=== PATIENT | male | born 1960 | race African-American/Black ===

== ENCOUNTER → 2017-05-02 | Outpatient (CLI) | payer OTHER ==
[2016-05-27 18:30] VITALS: BP 140/85
[~2017-05-02] MED LIST: CYCL10TA2 PO; HYDR-971 PO; METH4TAB2 PO; ORPH100T PO; Oxycodone Hcl/Acetaminophen PO; PRED50TA PO
--- NOTE | 2017-05-02 09:47 | KCIC ---
MRI Cervical Spine Without Contrast History: Neck pain, bilateral upper extremity numbness Technique: Multiplanar, multi sequential noncontrast MR imaging was performed of the cervical spine. Comparison: December 08, 2014 Findings: There is again interbody fusion C3-4. Cervical vertebral body stature is preserved. There is focus of increased T2 and STIR signal of the right cord at the C4-5 level which was present previously, previous exam degraded by more motion. There is again moderate to severe degenerative disc disease C5-C6 and to lesser degree at C4-5 and C6-7. There is no significant marrow edema. There is very minimal posterior subluxation C4 relative to C5 now present. There is again somewhat diffuse narrowing of the cervical spinal canal on a developmental basis. C2-C3: Central canal is minimally narrowed to about 8 mm mostly on a developmental basis. Neural foramina are adequate. C3-C4: Central canal is narrowed to 7-8 mm on a developmental basis as seen previously. Neural foramina are not significantly narrowed. C4-C5: There is again broad posterior disc osteophyte complex and bulge/protrusion. There is again effacement of the ventral and dorsal subarachnoid space with impingement of the cord. There is again significant narrowing of the central canal on the order of 4 mm. There is again bilateral facet and uncovertebral degenerative change. There is severe neural foramina compromise bilaterally. C5-C6: There is again disc osteophyte complex, superimposed more central protrusion as seen previously. There is effacement of ventral subarachnoid space and contact of the cord. Central canal is narrowed to 4 to 5 mm, slightly greater. There is uncovertebral degenerative change greater on the left. There is fairly severe narrowing of the left neural foramen, mild to moderate narrowing on the right. C6-C7: There is again disc osteophyte complex and bulge, now very shallow right paracentral protrusion. Central canal is narrowed to 7 to 8 mm which is slightly greater. There is uncovertebral degenerative change bilaterally greater on the left. There is fairly severe left and moderate to severe right neural foramina compromise. C7-T1: Spinal canal is adequate. There is mild uncovertebral degenerative change. Neural foramina are overall adequate. Impression: 1. There is again severe spinal stenosis C4-5 and C5-C6, to a lesser degree at C6-7. There is again impingement of the cord at C4-5 and also contact of the ventral cord at C5-C6. There is component of developmental narrowing of the cervical spinal canal. 2. Multilevel facet and uncovertebral degenerative change results in multilevel cervical neural foramina compromise, more significant narrowing bilaterally at C6-7 and C4-5 and left greater than right at C5-C6. 3. There is again signal abnormality of the right cord at C4-5 more likely due to myelomalacia although component of mild cord edema not excluded. 4. There is interbody fusion C3-4. There is degenerative disc disease greatest at C5-C6 and to lesser degree at C4-5 and C6-7 with spondylosis at the same levels. Electronically signed by: Mario Valdez MD (05/02/2017 9:44 AM) [facility]
== END | disposition home or self-care (01) ==
LOC: KCIC MRI 08:45
PROVIDERS: ATTEND Family Medicine
DX: M48.02 Spinal stenosis, cervical region (principal); M50.322 Other cervical disc degeneration at C5-C6 level; M50.323 Other cervical disc degeneration at C6-C7 level; M47.892 Other spondylosis, cervical region; R20.0 Anesthesia of skin
CPT/HCPCS: 72141

== ENCOUNTER → 2017-07-03 | Outpatient (CLI) | payer OTHER ==
[2017-07-03 14:13] LABS: ADD MAN DIFF? NO
[2017-07-03 14:20] LABS: BASO % 0 % (0-3); EOS # 0.1 x10^3/uL (0.0-0.7); EOS % 1 % (0-3); HEMATOCRIT 41.5 % (39.0-53.0); HEMOGLOBIN 13.8 g/dL (13.0-17.5); LYMPH # 2.5 x10^3/uL (1.0-4.8); LYMPH % 32 % (24-48); MEAN CORPUSCULAR HEMOGLOBIN 26 pg (25-35); MEAN CORPUSCULAR HGB CONC 33 g/dL (31-37); MEAN CORPUSCULAR VOLUME 78 fL (79-100); MONO # 0.8 x10^3/uL (0.0-1.1); MONO % 10 % (0-9); NEUT # 4.4 x10^3uL (1.8-7.7); NEUT % 57 % (31-73); PLATELET COUNT 279 x10^3/uL (140-400); RED BLOOD COUNT 5.34 x10^6/uL (4.30-5.70); RED CELL DISTRIBUTION WIDTH 13.4 % (11.5-14.5); WHITE BLOOD COUNT 7.7 x10^3/uL (4.0-11.0)
[2017-07-03 14:28] LABS: PARTIAL THROMBOPLASTIN TIME 32 SEC (24-38); PROTHROMBIN TIME PATIENT 12.7 SEC (11.7-14.0)
[2017-07-03 14:37] LABS: ALBUMIN 3.6 g/dL (3.4-5.0); ALBUMIN/GLOBULIN RATIO 0.8 (1.0-1.7); ALK PHOS 67 U/L (46-116); ALT (SGPT) 61 U/L (16-63); ANION GAP 12 (6-14); AST (SGOT) 33 U/L (15-37); BLOOD UREA NITROGEN 14 mg/dL (8-26); BUN/CREATININE RATIO 16 (6-20); CALCIUM 8.7 mg/dL (8.5-10.1); CARBON DIOXIDE 24 mmol/L (21-32); CHLORIDE 106 mmol/L (98-107); CREATININE 0.9 mg/dL (0.7-1.3); GFR 105.6; GLUCOSE 120 mg/dL (70-99); POTASSIUM 3.8 mmol/L (3.5-5.1); SODIUM 142 mmol/L (136-145); TOTAL BILIRUBIN 0.3 mg/dL (0.2-1.0); TOTAL PROTEIN 7.9 g/dL (6.4-8.2)
[2017-07-04 04:16] LABS: MRSA BY PCR Negative (Negative)
== END | disposition home or self-care (01) ==
LOC: SURGPAT 13:25
DX: M48.02 Spinal stenosis, cervical region (principal); Z01.818 Encounter for other preprocedural examination (principal)
CPT/HCPCS: 80053; 85025; 85610; 85730; 87641; 93005

== ENCOUNTER → 2018-06-02 | Outpatient (CLI) | payer OTHER ==
[2016-05-27 18:30] VITALS: BP 140/85
[~2018-06-02] MED LIST changes: +GABA600T2 PO; +HYDR-3135 PO; +HYDR-3164 PO; -HYDR-971 PO; +LISI10TA2 PO; +TAMS0.4C2 PO
--- NOTE | 2018-06-02 16:40 | RAD ---
Carotid doppler ultrasound History: Double vision Multiple grayscale, color, and duplex spectral analysis waveform sonographic images were acquired of the carotid, subclavian, and vertebral arteries. Comparison: None Findings: RIGHT: PSV cm/sec EDV cm/sec Common carotid artery 109 32 Maximal internal carotid artery 99 27 Subclavian artery 143 External carotid artery 110 Vertebral artery 52 ICA/CCA ratio 0.90 LEFT: PSV cm/sec EDV cm/sec Common carotid artery 105 29 Maximum internal carotid artery 89 34 Subclavian artery 116 External carotid artery 130 Vertebral artery 74 ICA/CCA ratio 0.84 Velocities used to determine stenosis are known to correlate with NASCET angiographic criteria. There is antegrade flow in the bilateral vertebral arteries. No significant stenosis is demonstrated on grayscale or color images, minimal plaque present. Impression: 1. There is no evidence of a hemodynamically significant stenosis. Electronically signed by: Mario Valdez MD (06/02/2018 4:36 PM) [facility]
== END | disposition home or self-care (01) ==
LOC: US 13:37
PROVIDERS: ATTEND Family Medicine
DX: H53.2 Diplopia (principal)
CPT/HCPCS: 93880

== ENCOUNTER 2018-11-24 15:31 | Emergency (ER) | payer OTHER ==
[~2018-11-24] VITALS: Ht 167.6 cm; Wt 66.7 kg
[~2018-11-24 15:31] MED LIST changes: -GABA600T2 PO; +GABA600T7 PO
[2018-11-24 15:34] VITALS: BP 175/82
--- NOTE | 2018-11-24 16:10 | RAD ---
TIBIA FIBULA RIGHT, FOOT RIGHT 3V Pain and swelling after injury. Two-view right tibia fibula No evidence of acute fracture. No aggressive bone destruction or periosteal reaction. 3 view right foot No acute fracture. No aggressive bone destruction. Joint spaces and alignment are intact. Small calcaneal enthesophyte. Mild spurring at the dorsal talonavicular joint. No significant soft tissue abnormality. IMPRESSION: No acute fracture or dislocation. Electronically signed by: Abiodun Gaxiola MD (11/24/2018 4:07 PM) [facility]
--- NOTE | 2018-11-24 16:10 | RAD ---
TIBIA FIBULA RIGHT, FOOT RIGHT 3V Pain and swelling after injury. Two-view right tibia fibula No evidence of acute fracture. No aggressive bone destruction or periosteal reaction. 3 view right foot No acute fracture. No aggressive bone destruction. Joint spaces and alignment are intact. Small calcaneal enthesophyte. Mild spurring at the dorsal talonavicular joint. No significant soft tissue abnormality. IMPRESSION: No acute fracture or dislocation. Electronically signed by: Abiodun Gaxiola MD (11/24/2018 4:07 PM) [facility]
--- NOTE | 2018-11-24 16:24 | PHYS DOC ---
Past Medical History Past Medical History: No Pertinent History, Hypertension Past Surgical History: Other Additional Past Surgical Histo: CERVICAL SPINE, LEFT SHOULDER ROTAR CUFF Alcohol Use: None Drug Use: None Adult General Chief Complaint Chief Complaint: FOOT INJURY PAIN HPI HPI Patient is a 58 year old female with history of hypertension who presents to the ED today complaining of 9 out of 10 throbbing intermittent right calf pain that began 3 weeks ago, patient states he stepped on a 4 x 2 which hit him on the calf. Patient states his pain is worse on weight bearing. Denies anything specifically relieving the pain. He states he went to urgent care this send him to the ED to be evaluated for DVT. Review of Systems Review of Systems Constitutional: Denies fever or chills [] Eyes: Denies change in visual acuity, redness, or eye pain [] HENT: Denies nasal congestion or sore throat [] Respiratory: Denies cough or shortness of breath [] Cardiovascular: No additional information not addressed in HPI [] GI: Denies abdominal pain, nausea, vomiting, bloody stools or diarrhea [] : Denies dysuria or hematuria [] Musculoskeletal: Reports right calf pain. Integument: Denies rash or skin lesions [] Neurologic: Denies headache, focal weakness or sensory changes [] All other systems were reviewed and found to be within normal limits, except as documented in this note. Allergies Allergies Allergies Coded Allergies Type Severity Reaction Last Updated Verified No Known Drug Allergies 07/03/17 No Physical Exam Physical Exam Constitutional: Well developed, well nourished, no acute distress, non-toxic appearance. [] HENT: Normocephalic, atraumatic, bilateral external ears normal, oropharynx mois t, no oral exudates, nose normal. [] Eyes: PERRLA, EOMI, conjunctiva normal, no discharge. [] Neck: Normal range of motion, no tenderness, supple, no stridor. [] Cardiovascular:Heart rate regular rhythm, no murmur [] Lungs & Thorax: Bilateral breath sounds clear to auscultation [] Abdomen: Bowel sounds normal, soft, no tenderness, no masses, no pulsatile masses. [] Skin: Warm, dry, no erythema, no rash. [] Back: No tenderness, no CVA tenderness. [] Extremities: Right lower extremity from the calf to the foot with mild soft tissue swelling diffusely. There is no obvious erythema. Diffuse tenderness throughout the calf on the foot. Negative Homans sign to the right foot. +2 right pedal pulse. Cap refill less than 2 seconds the right toes. Neurologic: Alert and oriented X 3, normal motor function, normal sensory function, no focal deficits noted. [] Psychologic: Affect normal, judgement normal, mood normal. [] Current Patient Data Vital Signs Vital Signs Date Time Temp Pulse Resp B/P (MAP) Pulse Ox O2 Delivery O2 Flow Rate FiO2 11/24/18 15:34 98.0 66 18 175/82 (113) 99 Room Air 98.0 EKG EKG [] Radiology/Procedures Radiology/Procedures []PROCEDURE: FOOT RIGHT 3V TIBIA FIBULA RIGHT, FOOT RIGHT 3V Pain and swelling after injury. Two-view right tibia fibula No evidence of acute fracture. No aggressive bone destruction or periosteal reaction. 3 view right foot No acute fracture. No aggressive bone destruction. Joint spaces and alignment are intact. Small calcaneal enthesophyte. Mild spurring at the dorsal talonavicular joint. No significant soft tissue abnormality. IMPRESSION: No acute fracture or dislocation. Electronically signed by: Abiodun Gaxiola MD (11/24/2018 4:07 PM) [facility] DICTATED and SIGNED BY: ABIODUN GAXIOLA MD DATE: 11/24/18 1605 PROCEDURE: VENOUS LOWER EXTREMITY RIGHT Right Leg Venous Doppler Ultrasound, 11/24/2018 Indication: Right foot injury Comparison: None available Procedure: Real-time grayscale, color flow color duplex Doppler and spectral analysis are obtained with and without compression in the area of the common femoral vein, superficial femoral vein - femoral vein junction, main femoral vein (superficial femoral vein) and popliteal vein. Veins of the proximal calf are also imaged. Findings: There is normal duplex flow, color flow and compressibility of all visualized vein segments. No evidence of deep venous thrombus is present. Impression: Negative venous Doppler of right lower extremity Electronically signed by: Modesta Martin MD (11/24/2018 4:30 PM) [facility] DICTATED and SIGNED BY: MODESTA MARTIN MD DATE: 11/24/18 1630 PROCEDURE: TIBIA FIBULA RIGHT TIBIA FIBULA RIGHT, FOOT RIGHT 3V Pain and swelling after injury. Two-view right tibia fibula No evidence of acute fracture. No aggressive bone destruction or periosteal reaction. 3 view right foot No acute fracture. No aggressive bone destruction. Joint spaces and alignment are intact. Small calcaneal enthesophyte. Mild spurring at the dorsal talonavicular joint. No significant soft tissue abnormality. IMPRESSION: No acute fracture or dislocation. Electronically signed by: Abiodun Gaxiola MD (11/24/2018 4:07 PM) [facility] DICTATED and SIGNED BY: ABIODUN GAXIOLA MD DATE: 11/24/18 1605 Course & Med Decision Making Course & Med Decision Making Pertinent Labs and Imaging studies reviewed. (See chart for details) This is a 58-year-old male patient presenting to the ED today with right calf pain that began 3 weeks ago after stepping on a 4 x 2 that hit him on the calf. Right foot, right tib-fib x-rays interpreted by radiologist are negative for any acute findings, venous Doppler of the right lower extremity is negative. Patient was discharged to home, prescription for diclofenac and gabapentin provided. Ice elevation encouraged. Price bandage recommended for comfort. Provided instructions to follow-up with PCP orthopedic doctor in 1-2 weeks. Dragon Disclaimer Dragon Disclaimer This electronic medical record was generated, in whole or in part, using a voice recognition dictation system. Departure Departure Impression: Primary Impression: Contusion of right calf Additional Impression: Right leg pain Disposition: 01 HOME, SELF-CARE Condition: STABLE Referrals: ABIODUN KEE MD (PCP) follow up in 1 week SAMUEL CARBONE MD follow up in 1-2 weeks Patient Instructions: Contusion, [id number], Musculoskeletal Pain Additional Instructions: You were evaluated in the emergency room for contusion to the right calf. Your right leg x-rays are negative for any acute findings, we did a venous Doppler of the right lower extremity which was negative for any blood clot. You can wrap your right lower extremity with an Price bandage as tolerated. Try to ice and elevate the extremity. Take the prescribed medications as needed for pain. Follow-up with your own doctor or the provided doctor in one week. Scripts Gabapentin (NEURONTIN ) 300 Mg Capsule 300 MG PO BID for NEUROGENIC PAIN, #10 CAP Prov: ROSI BROWNE DOLLY DRIVER 11/24/18 Diclofenac Sodium (DICLOFENAC SODIUM) 50 Mg Tablet.dr 1 TAB PO BID, #20 TAB 0 Refills Prov: ROSI BROWNE APRN 11/24/18 Problem Qualifiers Primary Impression: Contusion of right calf Encounter type: initial encounter Qualified Codes: S80.11XA - Contusion of right lower leg, initial encounter ROSI BROWNE APRN Nov 24, 2018 16:24
--- NOTE | 2018-11-24 16:32 | RAD ---
Right Leg Venous Doppler Ultrasound, 11/24/2018 Indication: Right foot injury Comparison: None available Procedure: Real-time grayscale, color flow color duplex Doppler and spectral analysis are obtained with and without compression in the area of the common femoral vein, superficial femoral vein - femoral vein junction, main femoral vein (superficial femoral vein) and popliteal vein. Veins of the proximal calf are also imaged. Findings: There is normal duplex flow, color flow and compressibility of all visualized vein segments. No evidence of deep venous thrombus is present. Impression: Negative venous Doppler of right lower extremity Electronically signed by: Modesta Martin MD (11/24/2018 4:30 PM) [place] [id number]
[2018-11-24] MEDS ORDERED: GABA300C18 PO (16:53)
[2018-11-24] MEDS ORDERED: DICL50TA4 PO (16:53)
== END 2018-11-24 16:56 | disposition home or self-care (01) ==
LOC: ER 15:31
DX: S80.11XA Contusion of right lower leg, initial encounter (principal); I10 Essential (primary) hypertension; W22.8XXA Striking against or struck by other objects, initial encounter; Y93.89 Activity, other specified; Y92.89 Other specified places as the place of occurrence of the external cause; Y99.8 Other external cause status
CPT/HCPCS: 73590; 73630; 93971; 99284-25

== ENCOUNTER 2019-02-25 15:37 | Emergency (ER) | payer OTHER ==
[~2019-02-25] VITALS: Ht 165.1 cm; Wt 66.7 kg
[~2019-02-25 15:37] MED LIST changes: +DICL50TA4 PO; +GABA300C18 PO
[2019-02-25 15:45] VITALS: BP 112/68
[2019-02-25] MEDS: HYDROcodone/APAP 5/325MG 1 TAB TABLET PO ONE (16:30)
--- NOTE | 2019-02-25 16:49 | RAD ---
EXAM: Left femur, 2 views; pelvis and left hip, 3 views. HISTORY: Pain. Fall. COMPARISON: None. FINDINGS: 2 views of left femur and a frontal view of the pelvis and 2 views of the left hip are obtained. There is no fracture, dislocation or subluxation. The femoral heads are normal in configuration. There is no suspicious lytic or sclerotic osseous lesion. There is no knee effusion. IMPRESSION: No acute osseous finding. Electronically signed by: Patti Gama MD (02/25/2019 4:46 PM) [facility]
--- NOTE | 2019-02-25 17:23 | PHYS DOC ---
Past Medical History Past Medical History: No Pertinent History, Hypertension Past Surgical History: Other Additional Past Surgical Histo: CERVICAL SPINE, LEFT SHOULDER ROTAR CUFF Alcohol Use: None Drug Use: None Adult General Chief Complaint Chief Complaint: HIP PAIN HPI HPI Patient is a 58 year old male who presents with states, they was sitting on the porch and he follows the stoop E on his left hip and left leg. Patient complains of left hip pain that radiates down the thigh into his knee. Patient rates his pain 9 out of 10. Review of Systems Review of Systems Constitutional: Denies fever or chills [] Musculoskeletal: Left lateral thigh. Denies back pain or Left hip joint pain [] Integument: Denies rash or skin lesions [] Neurologic: Denies headache, focal weakness or sensory changes [] All other systems were reviewed and found to be within normal limits, except as documented in this note. Current Medications Current Medications Current Medications Medications (Trade) Dose Ordered Sig/Shea Start Time Stop Time Status Last Admin Dose Admin Acetaminophen/ Hydrocodone Bitart (Lortab 5/325) 1 tab 1X ONCE 02/25/19 16:30 02/25/19 16:31 DC 02/25/19 16:37 1 TAB Allergies Allergies Allergies Coded Allergies Type Severity Reaction Last Updated Verified No Known Drug Allergies 07/03/17 No Physical Exam Physical Exam Constitutional: Well developed, well nourished, no acute distress, non-toxic appearance. [] Skin: Warm, dry, no erythema, no rash. [] Back: No tenderness, no CVA tenderness. [] Extremities: Left lateral thigh tenderness, no cyanosis, no clubbing, ROM intact, no edema. [] Neurologic: Alert and oriented X 3, normal motor function, normal sensory function, no focal deficits noted. [] Psychologic: Affect normal, judgement normal, mood normal. [] Current Patient Data Vital Signs Vital Signs Date Time Temp Pulse Resp B/P (MAP) Pulse Ox O2 Delivery O2 Flow Rate FiO2 02/25/19 16:37 16 97 Room Air 02/25/19 15:45 97.9 69 112/68 (83) 97.9 EKG EKG [] Radiology/Procedures Radiology/Procedures [] Impressions: [facility] [address] [place] [address] IMAGING REPORT Signed PATIENT: CELI TOLBERT ACCOUNT: [id number] : 1960 LOCATION: ER AGE: 58 SEX: M EXAM STATUS: REG ER ORD. PHYSICIAN: KENNEDY SHELDON APRN REASON: PAIN, FALL PROCEDURE: LEFT FEMUR XRAY EXAM: Left femur, 2 views; pelvis and left hip, 3 views. HISTORY: Pain. Fall. COMPARISON: None. FINDINGS: 2 views of left femur and a frontal view of the pelvis and 2 views of the left hip are obtained. There is no fracture, dislocation or subluxation. The femoral heads are normal in configuration. There is no suspicious lytic or sclerotic osseous lesion. There is no knee effusion. IMPRESSION: No acute osseous finding. Electronically signed by: Patti Ortiz MD (02/25/2019 4:46 PM) [facility] DICTATED and SIGNED BY: PATTI ORTIZ MD DATE: 02/25/191645 Course & Med Decision Making Course & Med Decision Making Patient is a 58 year old male who presents with states, they was sitting on the porch and he follows the stoop E on his left hip and left leg. Patient complains of left hip pain that radiates down the thigh into his knee. Patient rates his pain 9 out of 10. Full range of motion to the hip joint and knee joints. No laxity in the joints. No swelling or edema or bruising or abrasions or lacerations to the extremity. Only tenderness to the left lateral thigh. Pedal pulses strong and present. Skin pink warm and dry. Cap refill less than 3 seconds. Patient denies any numbness or tingling, color change of the skin or coolness in the extremity. X-ray shows no acute findings. Patient to follow-up with his primary care provider. Dragon Disclaimer Dragon Disclaimer This electronic medical record was generated, in whole or in part, using a voice recognition dictation system. Departure Departure Impression: Primary Impression: Right leg pain Disposition: 01 HOME, SELF-CARE Condition: STABLE Referrals: EV KEE MD (PCP) Patient Instructions: Contusion Additional Instructions: Follow-up with primary care provider. Take ibuprofen or Tylenol for pain. Use ice or heat also to help with pain. KENNEDY SHELDON APRN Feb 25, 2019 17:23
== END 2019-02-25 17:40 | disposition home or self-care (01) ==
LOC: ER 15:37
DX: M25.552 Pain in left hip (principal); I10 Essential (primary) hypertension; M79.652 Pain in left thigh; W13.0XXA Fall from, out of or through balcony, initial encounter; Y93.89 Activity, other specified; Y92.89 Other specified places as the place of occurrence of the external cause; Y99.8 Other external cause status
CPT/HCPCS: 73502; 73552; 99284

== ENCOUNTER 2020-03-03 09:13 | Emergency (ER) | payer OTHER ==
[~2020-03-03] VITALS: Ht 165.1 cm; Wt 66.0 kg
[2020-03-03 09:33] VITALS: BP 167/89
[2020-03-03] MEDS ORDERED: diazePAM 5 MG TABLET PO ONE (10:15)
--- NOTE | 2020-03-03 11:04 | RAD ---
Cervical spine CT without contrast History:Burning neck pain Technique: Noncontrast CT imaging was performed of the cervical spine. Multiplanar images are reviewed. Exposure: One or more of the following individualized dose reduction techniques were utilized for this examination: 1. Automated exposure control 2. Adjustment of the mA and/or kV according to patient size 3. Use of iterative reconstruction technique. Comparison: December 08, 2014 Findings: There is anterior cervical fusion hardware with intact metallic plate and screws at C4, C5, C6, C7. There is incorporated interbody grafts, degree of interbody fusion at these levels. There is again interbody fusion at C3-4. There is also posterior fusion hardware with posterior lateral mass screws C3, C4, C5, C6, and T1 attached to vertical rods. Hardware is intact. Cervical vertebral body stature is overall maintained. There is degree of diffuse narrowing of the cervical spinal canal on a developmental basis. There are posterior osteophytes variably C3-4 through C6-7 which slightly indents the ventral thecal sac. Residual AP osseous spinal canal is narrowed to about 6 to 7 mm at C4-5, to a lesser degree such as at C3-4 and C5-6. There is multilevel cervical facet degenerative change. There is multilevel [id number] neural foramina compromise greatest on the left at C3-C4 and C5-6, bilaterally at C4-5, and to a somewhat lesser degree bilaterally at C6-7. There is adequate alignment of lateral masses of C1 relative to C2. Occipital condylar -C1 articulation is maintained. Impression: 1. No acute cervical spine fracture is identified. 2. There is intact multilevel cervical hardware as stated. There is degree of diffuse cervical spinal stenosis on developmental basis, additional narrowing by osteophytes greatest at C4-5. There is variable, multilevel, [id number] cervical neural foramina compromise. Electronically signed by: Mario Valdez MD (03/03/2020 11:01 AM) [id number]
[2020-03-03] MEDS ORDERED: IBUP-1007 PO (12:16)
[2020-03-03] MEDS ORDERED: CYCL5TAB PO (12:16)
--- NOTE | 2020-03-03 12:18 | PHYS DOC ---
Past Medical History Past Medical History: No Pertinent History, Hypertension Past Surgical History: Other Additional Past Surgical Histo: CERVICAL SPINE, LEFT SHOULDER ROTAR CUFF Smoking Status: Former Smoker Alcohol Use: None Drug Use: None General Adult EDM: Chief Complaint: NECK PAIN HPI: HPI: 59-year-old male past medical history significant for BPH, hypertension (noncompliant with meds) and history of cervical fusion neck [facility] with Dr. Sena, presents the ED with complaints of left anterior neck "burning" pain that moves down his arm, is concerned for a blood clot. Patient with no prior history of DVT or PE, no family history of coagulation disorder, with no recent prolonged travel, trauma or hospitalizations/immobilizations. Patient states he freaked out so he called his primary care physician and his neurosurgeon this morning. Believes he has an MRI scheduled for Saturday. No associated weight loss, fevers, chills, IV drug use, saddle anesthesia or paralysis. Review of Systems: Review of Systems: Constitutional: Denies fever or chills. [] Eyes: Denies change in visual acuity. [] HENT: Denies nasal congestion or sore throat. [] Respiratory: Denies cough or shortness of breath. [] Cardiovascular: Denies chest pain or edema. [] GI: Denies abdominal pain, nausea, vomiting, bloody stools or diarrhea. [] : Denies dysuria. [] Musculoskeletal: Denies back pain or joint pain. [] Integument: Denies rash. [] Neurologic: Denies headache, focal weakness or sensory changes. [] Endocrine: Denies polyuria or polydipsia. [] Lymphatic: Denies swollen glands. [] Psychiatric: Denies depression or anxiety. [] Heart Score: Risk Factors: Risk Factors: DM, Current or recent (<one month) smoker, HTN, HLP, family history of CAD, obesity. Risk Scores: Score 0 - 3: 2.5% MACE over next 6 weeks - Discharge Home Score 4 - 6: 20.3% MACE over next 6 weeks - Admit for Clinical Observation Score 7 - 10: 72.7% MACE over next 6 weeks - Early Invasive Strategies Current Medications: Current Medications Medications (Trade) Dose Ordered Sig/Shea Start Time Stop Time Status Last Admin Dose Admin Diazepam (Valium) 5 mg 1X ONCE 03/03/20 10:15 03/03/20 10:16 DC 03/03/20 10:24 5 MG Allergies: Allergies: Allergies Coded Allergies Type Severity Reaction Last Updated Verified No Known Drug Allergies 07/03/17 No Physical Exam: PE: Constitutional: Well developed, well nourished, no acute distress, non-toxic appearance. [] HENT: Normocephalic, atraumatic, no midline ttp Eyes: EOMI, conjunctiva normal, no discharge. [] Neck: Normal range of motion, no tenderness, supple, no stridor. [] Cardiovascular:Heart rate regular rhythm, no murmur [] Lungs & Thorax: Bilateral breath sounds clear to auscultation [] Abdomen: Bowel sounds normal, soft, no tenderness, no masses, no pulsatile masses. [] Skin: Warm, dry, no erythema, no rash. [] Back: No tenderness, no CVA tenderness. [] Extremities: No tenderness, no cyanosis, no clubbing, ROM intact, no edema, equal radial pulses Neurologic: Alert and oriented X 3, normal motor function, normal sensory function, no focal deficits noted. [] Psychologic: Affect normal, judgement normal, mood normal. [] Current Patient Data: Vital Signs: Vital Signs Date Time Temp Pulse Resp B/P (MAP) Pulse Ox O2 Delivery O2 Flow Rate FiO2 03/03/20 09:33 97.1 65 18 167/89 (115) 99 Room Air 97.1 EKG: EKG: [] Radiology/Procedures: Radiology/Procedures: []IMAGING REPORT Signed PATIENT: CELI TOLBERT ACCOUNT: [id number] : 1960 LOCATION: ER AGE: 59 SEX: M EXAM STATUS: REG ER ORD. PHYSICIAN: ADRIEL SPARKS DO REASON: burning neck pain PROCEDURE: CT CERVICAL SPINE WO CONTRAST Cervical spine CT without contrast History:Burning neck pain Technique: Noncontrast CT imaging was performed of the cervical spine. Multiplanar images are reviewed. Exposure: One or more of the following individualized dose reduction techniques were utilized for this examination: 1. Automated exposure control 2. Adjustment of the mA and/or kV according to patient size 3. Use of iterative reconstruction technique. Comparison: December 08, 2014 Findings: There is anterior cervical fusion hardware with intact metallic plate and screws at C4, C5, C6, C7. There is incorporated interbody grafts, degree of interbody fusion at these levels. There is again interbody fusion at C3-4. There is also posterior fusion hardware with posterior lateral mass screws C3, C4, C5, C6, and T1 attached to vertical rods. Hardware is intact. Cervical vertebral body stature is overall maintained. There is degree of diffuse narrowing of the cervical spinal canal on a developmental basis. There are posterior osteophytes variably C3-4 through C6-7 which slightly indents the ventral thecal sac. Residual AP osseous spinal canal is narrowed to about 6 to 7 mm at C4-5, to a lesser degree such as at C3-4 and C5-6. There is multilevel cervical facet degenerative change. There is multilevel jvgk-ma-cjduuuow neural foramina compromise greatest on the left at C3-C4 and C5-6, bilaterally at C4-5, and to a somewhat lesser degree bilaterally at C6-7. There is adequate alignment of lateral masses of C1 relative to C2. Occipital condylar -C1 articulation is maintained. Impression: 1. No acute cervical spine fracture is identified. 2. There is intact multilevel cervical hardware as stated. There is degree of diffuse cervical spinal stenosis on developmental basis, additional narrowing by osteophytes greatest at C4-5. There is variable, multilevel, [id number]-mf-[id number] cervical neural foramina compromise. Electronically signed by: Fidencio Bailey MD (03/03/2020 11:01 AM) [id number] DICTATED and SIGNED BY: FIDENCIO BAILEY MD DATE: 03/03/20 1101 Course & Med Decision Making: Course & Med Decision Making Pertinent Labs and Imaging studies reviewed. 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 Patient states he has called his primary care physician and his neurosurgeon, has MRI pending on Saturday. Patient with no focal neurologic deficits. Strict ED return precautions for neuro deficits. Encouraged urgent outpatient follow-up with PMD and neurosurgery. Life-threatening processes were considered but are low suspicion at this time, given history and physical exam. Pt was educated on all prescription medications and adverse effects. All patient's questions were answered and pt was stable at time of discharge. Differential includes alexandra's angina, peritonsillar abscess, retropharyngeal abscess, epiglottitis, bacterial tracheitis, uvulitis, sepsis, mastoiditis, traumatic injury, carotid/vertebral dissection, intracranial aneurysms or n eurologic process (epidural abscess, cord compression). I spoken with the patient and her caregivers. I explained the patient's condition, diagnoses and treatment plan based on the information available to me at this time. I have answered the patient and her caregiver's questions and addressed any concerns. The patient and her caregivers have a good understanding of patient's diagnosis, condition and treatment plan as can be expected at this point. Vital signs have been stable. Patient's condition is stable and appropriate for discharge from the emergency department. Patient will pursue further outpatient evaluation with primary care physician or other designated or consulting physician as outlined in the discharge instructions. The patient and/or caregivers are agreeable to this plan of care and follow-up instructions have been explained in detail. The patient and/or caregivers have received these instructions in written form and have expressed an understanding of the discharge instructions. The patient and/or caregivers are aware that any significant change of condition or worsening of symptoms should prompt immediate return to this or the closest emergency department or call to 911. Willy Disclaimer: Willy Disclaimer: This electronic medical record was generated, in whole or in part, using a voice recognition dictation system. Departure Departure Impression: Primary Impression: Neck pain Additional Impression: Cervical radiculopathy Disposition: 01 HOME, SELF-CARE Condition: STABLE Referrals: EV KEE MD (PCP) Patient Instructions: Cervical Radiculopathy Additional Instructions: Binh Moon MD Primary Specialties Neurological Surgery [facility] Address: [address] [place] [id number] Scripts Ibuprofen (IBUPROFEN) 600 Mg Tablet 600 MG PO PRN Q6HRS PRN for PAIN, #20 TAB take with food or milk Prov: ADRIEL SPARKS DO 03/03/20 Cyclobenzaprine Hcl (CYCLOBENZAPRINE HCL) 5 Mg Tablet 1 TAB PO TID PRN for PAIN, #20 TAB Prov: ADRIEL SPARKS DO 03/03/20 Justicifation of Admission Dx: Justifications for Admission: Justification of Admission Dx: N/A ADRIEL SPARKS DO Mar 03, 2020 12:18
== END 2020-03-03 12:27 | disposition home or self-care (01) ==
LOC: ER 09:13
DX: M54.12 Radiculopathy, cervical region (principal); M48.02 Spinal stenosis, cervical region; I10 Essential (primary) hypertension; Z87.891 Personal history of nicotine dependence; Z98.1 Arthrodesis status
CPT/HCPCS: 72125; 99284

== ENCOUNTER 2020-11-25 10:15 | Emergency (ER) | payer OTHER ==
[~2020-11-25] VITALS: Ht 165.1 cm; Wt 61.6 kg
[~2020-11-25 10:15] MED LIST changes: +CYCL5TAB PO; +IBUP-1007 PO; +LISI10TA16 PO; -LISI10TA2 PO
[2020-11-25 11:15] VITALS: BP 156/84
--- NOTE | 2020-11-25 12:32 | PHYS DOC ---
Past Medical History Past Medical History: No Pertinent History, Hypertension Past Surgical History: Other Additional Past Surgical Histo: CERVICAL SPINE, LEFT SHOULDER ROTAR CUFF Smoking Status: Former Smoker Alcohol Use: None Drug Use: None General Adult EDM: Chief Complaint: COUGH HPI: HPI: Patient is a 60 year old male who presents with runny nose and cough for 1 week. Not taking any medications for his symptoms. Patient states he takes no medication daily. He denies chest pain, shortness of air, fever, nausea, vomiting, abdominal pain, diarrhea, dizziness, headache, numbness or tingling. Patient states he is eating and drinking as well. He is fully vaccinated for Covid. He does not smoke. Only health history is hypertension. Denies any pain. Review of Systems: Review of Systems: Constitutional: Denies fever or chills. [] Eyes: Denies change in visual acuity. [] HENT: Denies nasal congestion or sore throat. + Runny nose [] Respiratory: + cough or denies shortness of breath. [] Cardiovascular: Denies chest pain or edema. [] GI: Denies abdominal pain, nausea, vomiting, bloody stools or diarrhea. [] : Denies dysuria. [] Musculoskeletal: Denies back pain or joint pain. [] Integument: Denies rash. [] Neurologic: Denies headache, focal weakness or sensory changes. [] Endocrine: Denies polyuria or polydipsia. [] Lymphatic: Denies swollen glands. [] Psychiatric: Denies depression or anxiety. [] Heart Score: C/O Chest Pain: No Risk Factors: Risk Factors: DM, Current or recent (<one month) smoker, HTN, HLP, family history of CAD, obesity. Risk Scores: Score 0 - 3: 2.5% MACE over next 6 weeks - Discharge Home Score 4 - 6: 20.3% MACE over next 6 weeks - Admit for Clinical Observation Score 7 - 10: 72.7% MACE over next 6 weeks - Early Invasive Strategies Allergies: Allergies: Allergies Coded Allergies Type Severity Reaction Last Updated Verified No Known Drug Allergies 07/03/17 No Physical Exam: PE: Constitutional: Well developed, well nourished, no acute distress, non-toxic appearance. [] HENT: Normocephalic, atraumatic, bilateral external ears normal, oropharynx moist, no oral exudates, nose normal. [] Eyes: PERRLA, EOMI, conjunctiva normal, no discharge. [] Neck: Normal range of motion, no tenderness, supple, no stridor. [] Cardiovascular:Heart rate regular rhythm, no murmur [] Lungs & Thorax: Bilateral breath sounds clear to auscultation [] Abdomen: Bowel sounds normal, soft, no tenderness, no masses, no pulsatile masses. [] Skin: Warm, dry, no erythema, no rash. [] Back: No tenderness, no CVA tenderness. [] Extremities: No tenderness, no cyanosis, no clubbing, ROM intact, no edema. [] Neurologic: Alert and oriented X 3, normal motor function, normal sensory function, no focal deficits noted. [] Psychologic: Affect normal, judgement normal, mood normal. Normal physical exam [] EKG: EKG: [] Radiology/Procedures: Radiology/Procedures: [] Course & Med Decision Making: Course & Med Decision Making Pertinent Labs and Imaging studies reviewed. (See chart for details) COVID-19 CRITERIA: The patient was evaluated during the global COVID-19 pandemic, and that diagnosis was suspected/considered upon their initial presentation. Their evaluation, treatment and testing was consistent with current guidelines for patients who present with complaints or symptoms that may be related to COVID-19. See HPI. Alert and oriented x4. Ambulatory with a steady gait. Skin pink warm and dry. No extremity edema. Speaks in full clear sentences. Lungs are clear to auscultation in all lobes. Vital signs within normal limits. Throat is pink without exudates. Patient is tested for Covid. [] Dragon Disclaimer: Dragon Disclaimer: This electronic medical record was generated, in whole or in part, using a voice recognition dictation system. COVID-19 Patient Risks: Age 65 or older: No Sign of co-morbidity: Yes Exp to person + for COVID: No Exp to PUI: No Travel from affected area: No Lower respiratory symptoms: Yes Fever: No Other: No PPE Use: Full PPE with N95 mask or PAPR: Yes Departure Departure Impression: Primary Impression: Runny nose Additional Impression: Cough Disposition: 01 HOME / SELF CARE / HOMELESS Condition: STABLE Referrals: EV KEE MD (PCP) Patient Instructions: Allergic Rhinitis, Cough, Adult Additional Instructions: Take nvxm-vnh-mtjkyzk allergy medication. Use iera-fgj-yfbyaaq nasal sprays. Drink plenty of fluids. Take Tylenol or ibuprofen for any pain. Follow-up with your primary care provider. You have been tested for or diagnosed with COVID-19. It is an infection caused by a new type of coronavirus. COVID-19 will cause cold-like or mild flu symptoms in most. It can cause more severe symptoms like problems breathing in some. There is no treatment for COVID-19. The body will clear the infection over time. Self-care will help to ease discomfort. Steps to Take: Self-Care Rest as needed. Healthy habits may help you feel better. Steps include: Choose healthy foods including fruits and vegetables. Drink water throughout the day. Get plenty of sleep each night. If you smoke, try to quit. It may ease breathing. Avoid alcohol. Keep Others Healthy The virus can spread to others. Droplets are released every time you sneeze or cough. The droplets can get into the mouth, nose, or eyes of people near you and lead to infection. To lower the chances of spreading COVID-19 to others: Stay at home until your doctor has said it is safe to leave. If you tested positive this will mean staying isolated until both of the following are true: At least 7 days have passed since the start of illness. You are free of fever for at least 72 hours without the use of medicine. During this time: - Avoid public areas, events, or transportation. Do not return to work or school until your doctor has said it is safe to do so. - Call ahead if you need to go to a medical center. Let them know you may have COVID-19. It will help them guide you where to go. They may also ask you to wear a facemask when you come to the office. - If you call for emergency medical services, let them know you may have COVID- 19. While at home: - Try to avoid close contact with others. Stay about 6 feet away. - If possible, spend most of your time in a separate room from others. - Use a face mask if you will be in close contact with others such as sharing a room or vehicle. - Have someone wipe down common surfaces in the home. Use household nat instructor every day on areas like doorknobs, counters, or sinks. - Cough or sneeze into a tissue. Throw the tissue away right after use. If a tissue is not available, cough or sneeze into your elbow. - Wash your hands often. Wash them after sneezing or coughing. Use soap and water and wash for at least 20 seconds. Alcohol based hand hospital cleaner can be used if soap and water is not available. - Do not prepare food for others. Avoid sharing personal items like forks, spoons, or toothbrushes. - Avoid close contact with pets while you are sick. There is no evidence of the virus passing to pets. This is a safety step until more is known about this virus. Isolation can be frustrating. Social interaction can help. Keep in touch with friends and family through phone and tech options. You can still interact with others in your home, just keep a safe distance of about 6 feet. Follow-up: Your doctors office will check in with you to see if there are any changes in your health. You may be asked to keep track of symptoms to share with them. They will also let you know when you are clear to be in public again. Problems to Look Out For: Contact your doctor if your recovery is not going as you expect. Get emergency care if you have problems such as: - Trouble breathing - Nonstop chest pain or pressure - Changes in awareness, confusion, or problems waking - Lips or face have bluish color - Worsening of symptoms If you think you have an emergency, call for emergency medical services right away. As taken from [facility] KENNEDY Sage APRN Nov 25, 2020 12:32
--- NOTE | 2020-11-28 09:12 | NUR ---
IP: Attempted to contact pt concerning coivd results. No answer, left a voicemail to return the call.
--- NOTE | 2020-11-29 13:51 | NUR ---
IP: Made second attempt to contact pt concerning covid results. Phone answered and immediately hung up. No further attempts will be made.
== END 2020-11-25 12:56 | disposition home or self-care (01) ==
LOC: ER 10:15
DX: R09.89 Other specified symptoms and signs involving the circulatory and respiratory systems (principal); Z20.822 Contact with and (suspected) exposure to COVID-19; R05 Cough; I10 Essential (primary) hypertension; Z87.891 Personal history of nicotine dependence
CPT/HCPCS: 99283; U0003; U0005

== ENCOUNTER → 2021-02-16 | Outpatient (CLI) | payer OTHER ==
--- NOTE | 2021-02-16 16:53 | KCIC ---
EXAM: Lumbar spine, 3 views. HISTORY: Pain. COMPARISON: None. FINDINGS: 3 views of the lumbar spine are obtained. There is multilevel endplate remodeling and anter ior osteophytosis. There is facet arthropathy at the mid lower lumbar levels. There is no fracture. T here is no significant listhesis. There are surgical clips and there is a stable anastomosis within t he right lower quadrant. IMPRESSION: Multiple level degenerative change, described above. No acute osseous finding. Electronically signed by: Patti Gama MD (02/16/2021 4:51 PM) [id number]
== END ==
LOC: KCIC 12:42
PROVIDERS: ATTEND Family Medicine
DX: M47.816 Spondylosis without myelopathy or radiculopathy, lumbar region (principal); M48.8X6 Other specified spondylopathies, lumbar region; M25.78 Osteophyte, vertebrae
CPT/HCPCS: 72100